=== PATIENT | female | born 1975 | race Caucasian/White ===

== ENCOUNTER → 2023-12-20 14:45 | Outpatient (BNV) | payer MEDICARE, MEDICAID, SELFPAY | PROVIDERS: PCP Internal Medicine; Visit Provider Radiology Diagnostic Radiology | DX: Z12.31 Encounter for screening mammogram for malignant neoplasm of breast (principal) | CPT/HCPCS: 77063; 77067 ==

== ENCOUNTER 2023-12-20 14:54 | Outpatient (REF) | payer MEDICARE, MEDICAID, SELFPAY ==
--- NOTE | ~2023-12-20 | MM_ITS ---
EXAMINATION: MM SCREENING DIGITAL BREAST TOMOSYNTHESIS, BILATERAL WITH BREAST IMPLANTS CLINICAL INFORMATION: Screening. Asymptomatic. COMPARISON: Mammography: This is a baseline mammogram TECHNIQUE: Digital mammography is performed in craniocaudal and mediolateral oblique views along with computer-aided detection (CAD). Digital breast tomosynthesis is performed in implant-displaced craniocaudal and implant-displaced mediolateral oblique views along with computer-aided detection (CAD). Synthesized 2D images are generated from the tomosynthesis. FINDINGS: There are scattered areas of fibroglandular density (ACR BI-RADS breast composition Category b). There are bilateral, retropectoral, mammographically intact saline breast implants. There are no significant masses, abnormal calcifications, or other abnormalities. MM/MM tomosynthesis screen imp BI IMPRESSION: There are no significant changes from prior study. ASSESSMENT: BI-RADS BI-RADS 1 - Negative RECOMMENDATION: Routine annual mammography screening. 1 year F/U This patient's information was entered into a reminder system with a target due date for their next mammogram.
== END 2023-12-20 14:55 | disposition home or self-care (01) ==
LOC: HO.MAMMO 14:54
PROVIDERS: PCP Internal Medicine; Visit Provider Internal Medicine
DX: Z12.31 Encounter for screening mammogram for malignant neoplasm of breast (principal)
CPT/HCPCS: 77063; 77067

== ENCOUNTER 2024-01-10 15:01 | Outpatient (REF) | payer MEDICARE, MEDICAID, SELFPAY ==
[2024-01-11 04:05] LABS: Syphilis Screen Nonreactive (Nonreactive)
[2024-01-11 04:34] LABS: HBS Num1 4.06 mIU/mL (0-7.99); HBc Num1 0.09 S/CO (0.00-0.79); HBsAGNum1 0.27 S/CO (0.00-0.99); HIV AB/AG Nonreactive (Nonreactive); HIV Num 1 0.05 S/CO (0.00-0.99); Hepatitis B Core Antibody Nonreactive (Nonreactive); Hepatitis B Surface Antigen Negative (Negative); ~HepC Num1 0.12 S/CO (0.00-0.79); ~Hepatitis B Surface Antibody NONREACTIVE (Nonreactive); ~Hepatitis C Antibody Nonreactive (Nonreactive)
[2024-01-19 01:58] LABS: C. trachomatis RNA TMA NOT DETECTED (NOT DETECTED); N. gonorrhoeae RNA TMA NOT DETECTED (NOT DETECTED)
[2024-01-19 02:09] LABS: Trichomonas (NAAT) NOT DETECTED (NOT DETECTED)
[2024-01-19 03:37] LABS: HPV mRNA E6/E7 rflx Not Detected (Not Detected)
== END 2024-01-10 15:02 | disposition home or self-care (01) ==
LOC: HO.CHCLDS 15:01
PROVIDERS: Visit Provider Advanced Practice Midwife
DX: Z11.3 Encounter for screening for infections with a predominantly sexual mode of transmission (principal); Z12.4 Encounter for screening for malignant neoplasm of cervix; Z11.59 Encounter for screening for other viral diseases
CPT/HCPCS: 36415; 86704; 86706; 86780; 86803; 87340; 87389; 87491; 87591; 87624; 87661; 88142

== ENCOUNTER 2024-01-30 11:02 | Outpatient (REF) | payer MEDICARE, MEDICAID, SELFPAY ==
[2024-01-30 14:32] LABS: MANUAL DIFF FLAG NO
[2024-01-30 14:39] LABS: Basophils Absolute Auto 0.1 X10*3/uL (0.0-0.2); Basophils Percent Auto 0.8 % (0-2); Eosinophils Absolute Auto 0.1 X10*3/uL (0.0-0.4); Eosinophils Percent Auto 1.7 % (0-4); Hematocrit 34.4 % (37.0-47.0); Hemoglobin 10.8 g/dl (12.0-16.0); Imm Gran Abs Auto 0.02 X10*3/uL (0.00-0.03); Imm Gran Pct Auto 0.2 % (0.0-0.4); Lymphocytes Absolute Auto 2.4 X10*3/uL (1.2-4.9); Lymphocytes Percent Auto 27.9 % (20-40); Mean Corpuscular HGB Conc 31.4 g/dl (31.0-35.0); Mean Corpuscular Hemoglobin 25.1 pg (27.0-33.0); Monocytes Absolute Auto 0.7 X10*3/uL (0.1-1.2); Monocytes Percent Auto 7.8 % (2-11); Neutrophils Absolute Auto 5.2 x10*3/uL (2.0-8.3); Neutrophils Percent Auto 61.6 % (45-73); Platelet Count 400 X10*3/uL (160-400); White Blood Count 8.4 X10*3/uL (4.8-10.8)
[2024-01-30 14:48] LABS: Estimated Average Glucose 114 mg/dL; Hemoglobin A1c % 5.6 % (<6.0)
[2024-01-30 14:57] LABS: Prothrombin Time 11.8 SEC (11.1-13.3)
[2024-01-30 14:59] LABS: Alanine Aminotransferase 14 U/L (0-31); Albumin Level 4.5 g/dL (3.5-5.0); Alkaline Phosphatase 63 U/L (39-117); Anion Gap 13 (12-20); Aspartate Amino Transferase 19 U/L (5-31); Bilirubin Total 0.6 mg/dL (0.0-1.0); Blood Urea Nitrogen 11 mg/dL (9-16); Calcium 9.5 mg/dL (8.4-10.2); Carbon Dioxide 24 mmol/L (22-29); Chloride 105 mmol/L (96-108); Cholesterol 203 mg/dL (<200); Estimated Glomerular Filt Rate > 60; Glucose Random 101 mg/dL (60-115); HDL Cholesterol 54 mg/dL (>40); LDL Cholesterol Calculated 135 mg/dL (<100); Potassium 3.7 mmol/L (3.3-5.1); Sodium 138 mmol/L (135-145); Total Protein 8.1 g/dL (6.5-8.0); Triglycerides 71 mg/dL (<150)
[2024-01-30 15:00] LABS: Partial Thromboplastin Time 29.5 SEC (26.0-36.8)
[2024-01-30 15:10] LABS: TSH reflex Free T4 0.98 uIU/mL (0.32-4.0); Vitamin D 25-OH Total 12.4 ng/mL (>30)
== END 2024-01-30 11:03 | disposition home or self-care (01) ==
LOC: HO.CHCLDS 11:02
PROVIDERS: Visit Provider Internal Medicine
DX: Z00.00 Encounter for general adult medical examination without abnormal findings (principal); E66.3 Overweight; E55.9 Vitamin D deficiency, unspecified; F41.9 Anxiety disorder, unspecified; Z83.3 Family history of diabetes mellitus
CPT/HCPCS: 36415; 80053; 80061; 82306; 83036; 84443; 85025; 85610; 85730

== ENCOUNTER 2024-02-24 12:18 | Outpatient (REF) | payer MEDICARE, MEDICAID, SELFPAY ==
--- NOTE | ~2024-02-24 | XR_ITS ---
EXAMINATION: XR chest 2V CLINICAL INFORMATION: Reason for Exam 48 yo F with intermittent episodes of STEELE, needs preop CXR, send to [facility] [place] COMPARISON: None TECHNIQUE: 2 views of the chest FINDINGS: Clear lungs. No pneumothorax or pleural effusion. Normal cardiomediastinal silhouette. XR/XR chest 2V Impression: * Clear lungs.
== END 2024-02-24 12:19 | disposition home or self-care (01) ==
LOC: HO.XRAY 12:18
PROVIDERS: Absent Provider Internal Medicine; PCP Internal Medicine; Visit Provider Family Medicine
DX: Z01.810 Encounter for preprocedural cardiovascular examination (principal)
CPT/HCPCS: 71046

== ENCOUNTER 2024-03-07 12:43 | Outpatient (REF) | payer MEDICARE, MEDICAID, SELFPAY ==
[2024-03-07 14:12] LABS: MANUAL DIFF FLAG NO
[2024-03-07 14:19] LABS: Basophils Absolute Auto 0.1 X10*3/uL (0.0-0.2); Basophils Percent Auto 0.6 % (0-2); Eosinophils Absolute Auto 0.2 X10*3/uL (0.0-0.4); Eosinophils Percent Auto 2.4 % (0-4); Hemoglobin 10.8 g/dl (12.0-16.0); Imm Gran Abs Auto 0.03 X10*3/uL (0.00-0.03); Imm Gran Pct Auto 0.3 % (0.0-0.4); Lymphocytes Absolute Auto 3.2 X10*3/uL (1.2-4.9); Lymphocytes Percent Auto 33.5 % (20-40); Mean Corpuscular HGB Conc 30.9 g/dl (31.0-35.0); Mean Corpuscular Hemoglobin 24.4 pg (27.0-33.0); Mean Corpuscular Volume 79.2 fL (80.0-98.0); Mean Platelet Volume 11.4 fL (9.4-12.3); Monocytes Absolute Auto 0.6 X10*3/uL (0.1-1.2); Monocytes Percent Auto 6.2 % (2-11); Neutrophils Absolute Auto 5.4 x10*3/uL (2.0-8.3); Platelet Count 455 X10*3/uL (160-400); Red Blood Count 4.42 X10*6/uL (4.20-5.50); Red Cell Distribution Width 15.7 % (11.0-16.0); White Blood Count 9.5 X10*3/uL (4.8-10.8)
== END 2024-03-07 12:44 | disposition home or self-care (01) ==
LOC: HO.CHCLDS 12:43
PROVIDERS: Visit Provider Family Medicine
DX: D64.9 Anemia, unspecified (principal)
CPT/HCPCS: 36415; 85025

== ENCOUNTER → 2024-03-09 09:21 | Outpatient (REF) | payer MEDICARE, MEDICAID, SELFPAY ==
--- NOTE | 2024-03-09 09:25 | CA_ITS ---
Acquisition Time: 2024-03-09 09:24:51 Total Exercise Time: 00:06:41 Test Indications: PREOP, SOB Medications: SEE H Protocol: CHRIS Max HR: 166 BPM 97% of Pred: 171 BPM Max BP: 146/064 mmHG Max Work Load: 8.0 METS Exercise stress test exercise 6 min 41 sec of Chris protocol achieving 95% MPHR and 8 METS, with mild to moderate SOB, no chest disocmfort, without arrhythmias, with normotensive response to exercise. without EKG chnages. Breathing returned to baseline with rest. Test reviewed with Dr. Kearns Referred By: Fern Ambrosio Overread By: Radha Regalado
== END ==
LOC: HO.CARD 09:21
PROVIDERS: PCP Internal Medicine; Visit Provider Family Medicine
DX: Z01.810 Encounter for preprocedural cardiovascular examination (principal)
CPT/HCPCS: 93017

== ENCOUNTER → 2024-03-09 09:25 | Outpatient (BNV) | payer MEDICARE, MEDICAID, SELFPAY | PROVIDERS: PCP Internal Medicine; Visit Provider Nurse Practitioner | DX: R06.02 Shortness of breath (principal) | CPT/HCPCS: 93016; 93018 ==

== ENCOUNTER 2025-03-18 12:43 | Outpatient (REF) | payer MEDICARE, MEDICAID, SELFPAY ==
--- OUTSIDE RECORDS SUMMARY | 2025-03-18 13:15 | XMS_ITS | Clinical Summary ---
Author Organization [facility] Address [id number] [place] [id number] Care Team Providers Care Assembler Dry Cell And Battery Name Role Phone Unavailable Primary Care Provider Unavailabl e Social History Tobacco Use Types Packs/Day Years Used Date Smoking Tobacco: Never Assessed Comments Unknown Sex and Gender Information Value Date Recorded Sex Assigned at Not on file Legal Sex Female 4:27 PM EST Gender Identity Not on file Sexual Orientation Not on file Plan of Treatment Health Maintenance Due Date Last Done Comments Breast Cancer Screening 1974 DTaP,Tdap,and Td Vaccines (1 - Tdap) 1993 Hepatitis B Vaccines (1 of 3 - 19+ 3-dose series) 1993 Cervical Cancer Screening: P ap Smear 1995 Colorectal Cancer Screening: Colonoscopy 08/11/2022 Depression Screening 08/11/2022 HIV Screening 08/11/2022 Hepatitis C Screening 08/11/2022 Social Influencers of Health Screening 08/11/2022 COVID-19 Vaccine (1 - 2023-2 5 season) 2024 Pneumococcal Vaccine: 50+ Ye ars (1 of 1 - PCV) 2024 Zoster Vaccines (1 of 2) 2024 Influenza Vaccine (#1) 2025 HIB Vaccines Aged Out No longer eligi ble based on patient's age to complete this topic HPV Vaccines Aged Out No longer eligi ble based on patient's age to complete this topic Hepatitis A Vaccines Aged Out No long er eligible based on patient's age to complete this topic IPV Vaccines Aged Out No longer eligi ble based on patient's age to complete this topic MMR Vaccines Aged Out No longer eligi ble based on patient's age to complete this topic Meningococcal ACWY Vaccine Aged Out N o longer eligible based on patient's age to complete this topic Meningococcal B Vaccine Aged Out No l onger eligible based on patient's age to complete this topic Pneumococcal Vaccine: Pediat rics (0 to 5 Years) and At-Risk Patients (6 to 49 Years) Aged Out No longer eligible b ased on patient's age to complete this topic RSV Immunization Patients Un yinka 20 months Aged Out No longer eligible b ased on patient's age to complete this topic Varicella Vaccines Aged Out No longer eligible based on patient's age to complete this topic
--- OUTSIDE RECORDS SUMMARY | 2025-03-18 13:15 | XMS_ITS | Encounter Summary ---
Author Organization [employer] Address [address], [place] [address] Care Team Providers Care Traffic Analyst Name Role Phone Marcelo Tao MD Primary Care Prov ider Reason for Visit * Reason Onset Date Comments Nurse Triage 03/18/2025 Encounter Details Date Type Department Care Team (Late st Contact Info) Description 03/18/2025 Telephone [facility] MEDICINE [address] [place] [address] Marcelo Tao MD [address] [place] [address] Nurse Triage Social History Tobacco Use Types Packs/Day Years Used Date Smoking Tobacco: Never Smokeless Tobacco: Never Alcohol Use Standard Drinks/Week Comments Never 0 (1 standard drink = 0.6 oz pur e alcohol) Depression Answer Date Recorded Patient Health Questionnaire-9 Score 7 11/29/2023 Patient Health Questionnaire-9 Score 7 11/29/2023 Last PHQ-9: Questionnaire Data Not on file 0 11/29/2023 Housing Stability Answer Date Recorded What is your housing situation today? I have ruperto cleopatra 11/29/[address] you li ve. Do you have problems with any of the following? No or not working smoke detectors 11/29/2023 Food Insecurity Answer Date Recorded Within the past 12 months, y ou worried that your food would run out before you got money to buy more: Never True 11/29/2023 Within the past 12 months,th e food you bought just didn't last and you didn't have enough money to get more: Never True Transportation Answer Date Recorded In the past 12 months, has l ack of transportation kept you from medical appts, meetings, work or from getting things needed for daily living? No 11/29/2023 Utilities Answer Date Recorded In the past 12 months, has t he electric, gas, oil or water company threatened to shut off services in your home? No 11/29/2023 Depression Answer Date Recorded Patient Health Questionnaire-2 Score 0 11/29/2023 Comments No Sex and Gender Information Value Date Recorded Sex Assigned at Female 07/27/2023 10:12 AM EST Legal Sex Female 10:11 AM EST Gender Identity Female 07/27/2023 10:12 AM EST Sexual Orientation Don't know 11/29/2023 1: 25 PM EDT documented as of this encounter Miscellaneous Notes * Telephone Encounter - Fabiana Pena RN - 03/18/2025 1:07 PM EDT Pt walked in requesting appointment with PCP, stated that she was instructed to come to [facility] office for an appt by triage. Author advised pt was advised to have labs completed. Pt stated that she has had a pressure feeling on her chest over past 6 months that has been persistent. Denies shortness ofbreath. No accessory muscles used, skin warm with normal color for ethnicity. No s/sx of resp distre ss. SOS appt available for tomorrow 03/19. Pt verbalized agreement to appt and understanding of plan.Pt had labs completed at [facility] today. * Telephone Encounter - Lilibeth SpringerANKITA gifford - 03/18/2025 11:28 AM EDT Patient calling with concerns of severe fatigue and weakness. Patient reports she is taking Iron three times weekly and it is causing constipation. Patient started to take a stool softener but stopped as she was having loose stools. Encouraged to take to prevent constipation. Patient followed with Psych provider now only taken Clonazepam and no longer taking injections. Patient is concerned with anemia and that she wants to see a lung specialist and have a sleep study. Patient reports severe snoring and is unable to sleep in an upright position. Continues to have some shortness of breath worse with exertion. No acute shortness of breath today per Patient. Labs ordered last year include CBC,Iron , Vit B12. Orders appear valid until 04/26/2025. Patient made aware and will go today or tomorrow to have labs done. No PCP or Team appts available at time of call. Patient made aware and Team tasked to follow with patient appt. After labs completed. Protocol Used: Weakness (Generalized) and Fatigue (Adult) Protocol-Based Disposition: See in Office or Video Visit Today Video visit offer not recorded Positive Triage Questions: * Moderate weakness (e.g., interferes with work, school, normal activities) and persists > 3 days * Patient wants to be seen * All higher-acuity triage questions were negative * Telephone Encounter - Lucy Caceres - 03/18/2025 10:50 AM EDT Symptoms: Weakness, Lethargic (Tired) Outcome: Transfer to a nurse or provider NOW! Reason: Can't stand (unless normally can't stand) The caller accepted this outcome. Contact pt at [phone] Need seismic interpreter documented in this encounter Plan of Treatment Upcoming Encounters Date Type Department Care Team ([facility] st Contact Info) Description 03/19/2025 3:45 PM EDT Office Visit [facility] [address] [place] [address] Eliane Frost, MEDICAL POLICY SPECIALIST [address] [place] [address] 04/17/2025 3:00 PM EDT Office Visit [facility] [address] [place] [address] Marcelo Tao MD [address] [place] [address] documented as of this encounter Visit Diagnoses Not on filedocumented in this encounter Additional Health Concerns Assessment Noted Time PHQ-9 Depression Total Score: 7 11/29/19 24 2:00 PM EDT documented as of this encounter Care Teams Traffic Analyst Relationship Specialty Start Date End Date Marcelo Tao MD [address] [place] [id number] PCP - General Internal Medicine 01/03/24 documented as of this encounter
[2025-03-18 14:35] LABS: MANUAL DIFF FLAG NO
[2025-03-18 14:48] LABS: Hematocrit 35.7 % (37.0-47.0); Hemoglobin 11.4 g/dl (12.0-16.0); Imm Gran Abs Auto 0.02 X10*3/uL (0.00-0.03); Imm Gran Pct Auto 0.3 % (0.0-0.4); Lymphocytes Absolute Auto 1.9 X10*3/uL (1.2-4.9); Mean Corpuscular HGB Conc 31.9 g/dl (31.0-35.0); Mean Corpuscular Hemoglobin 26.2 pg (27.0-33.0); Mean Corpuscular Volume 82.1 fL (80.0-98.0); NRBC Abs Auto 0.000 X10*3/uL (0.0-0.012); NRBC Pct Auto 0.0 /100WBC (0.0-0.2); Platelet Count 324 X10*3/uL (160-400); Red Blood Count 4.35 X10*6/uL (4.20-5.50); White Blood Count 6.5 X10*3/uL (4.8-10.8)
[2025-03-18 15:09] LABS: Iron 50 mcg/dL (30-160); Percent Iron Saturation 16 % (15-50); Total Iron Binding Capacity 314 mcg/dL (228-428); Unsaturated Iron Binding 264 ug/dL
[2025-03-18 15:39] LABS: Folate 8.2 ng/mL (> or = 4.0); Vitamin B12 1583 pg/mL (200-900)
== END 2025-03-18 12:44 | disposition home or self-care (01) ==
LOC: HO.CHCLDS 12:43
PROVIDERS: Visit Provider Internal Medicine
DX: D50.0 Iron deficiency anemia secondary to blood loss (chronic) (principal)
CPT/HCPCS: 36415; 82607; 82746; 83540; 85025

== ENCOUNTER 2025-03-22 14:17 | Outpatient (REF) | payer MEDICARE, MEDICAID, SELFPAY ==
--- OUTSIDE RECORDS SUMMARY | 2025-03-22 14:24 | XMS_ITS | Clinical Summary ---
Author Organization [facility] Address [address] [place] [id number] Care Team Providers Care Retail Maintenance Technician Name Role Phone Unavailable Primary Care Provider [...]
== END 2025-03-22 14:18 | disposition home or self-care (01) ==
LOC: HO.CHCLDS 14:17
PROVIDERS: Visit Provider Nurse Practitioner Family
DX: R06.00 Dyspnea, unspecified (principal)
CPT/HCPCS: 36415; 84443

== ENCOUNTER → 2025-04-24 12:44 | Outpatient (REF) | payer MEDICARE, MEDICAID, SELFPAY ==
--- NOTE | 2025-04-24 12:47 | CA_ITS ---
Transthoracic Echocardiogram Patient (Last, First, Middle): Jeanine Shaver, Gender: Female Date of : 1975 Age: 49 Procedure Date: 04/24/2025 Procedure Type: Transthoracic Echocardiogram Location: OP Height: 147.32 cm Weight: 56.25 kg BSA: 1.49 m2 Heart Rate: bpm BP: 102 / 68 mmHg Health Officer: TO Referring MD: Eliane Frost MACHINE ADJUSTER HELPER Banquet Captain: Reese Kearns MD Symptoms: R06.00 [id number] Study Quality: Adequate ECG Rhythm: Sinus Conclusions: - 1. Normal LV ejection fraction 55-60% with impaired relaxation filling pattern 2. Normal cardiac valvular Dopplers 3. Normal RV systolic pressure 4. No gross pericardial effusion Findings Left Ventricle Normal left ventricular size, thickness, and systolic function. The visually estimated ejection fraction is between 55-60%. Spectral Doppler is indicative of an impaired relaxation filling pattern. E/E prime ratio is between 8 and 15 consistent with indeterminate filling pressures. Right Ventricle Normal right ventricular cavity size and systolic function. Atria Both atria are normal in size. There is no evidence of interatrial shunt. Aortic Valve Normal aortic valve structure and function. There is no aortic valve stenosis. There is no aortic valve regurgitation. Mitral Valve There is mild anterior and posterior mitral leaflet thickening. There is trace mitral valve regurgitation. There is no mitral valve stenosis. Pulmonic Valve The pulmonic valve was not well visualized. Tricuspid Valve Likely normal tricuspid valve structure and function. There is trace tricuspid valve regurgitation. The right ventricular systolic pressure is normal. The right ventricular systolic pressure is 15 mmHg. Normal right atrial pressure. There is no evidence of pulmonary hypertension. Great Vessels All visible segments of the aorta are normal in size. The pulmonary artery was not well visualized. There is no dilatation of the ascending aorta measuring 2.60 cm. Venous The inferior vena cava is normal in size and collapses greater than 50% with inspiration. Pericardium/Pleural There is no evidence of pericardial effusion. Prior Study Comparison No prior study in the last 5 years for comparison Measurements 2D Linear Measurements IVSd: 0.66 0.6-0.9/0.6-1.0 cm LVIDd: 4.17 3.9-5.3/4.2-5.9 cm LVIDd Index: 2.80 2.4-3.2/2.2-3.1 cm/m2 LVIDs: 2.94 2.0-3.6 cm LVPWd: 0.58 0.7-1.1 cm LA Diam: 3.00 2.7-3.8/3.0-4.0 cm LAIDs Index: 2.01 1.5-2.3 cm/m2 LV Mass: 89.54 67-162/88-224 g LV Mass Index: 60.09 43-95/49-115 g/m2 LVOT Diam: 1.90 3.0+(-)1.3 cm 2D Systolic Function EF 4C: 58.60 >55% EF 2C: 61.20 >55% EF BiP: 59.20 >55% Mitral Valve MV Pk E: 0.81 MV PK A: 0.90 MV Decel Time: 213.00 E/A: 0.90 E'Lateral: 6.53 E'Medial: 5.77 E/E' Med: 14.10 E/E' Lat: 12.50 PHT: 62.00 MVA PHT: 3.55 Decel Brewster: 3.83 Aortic Valve AoV Pk Minh: 1.61 AoV Mn Minh: 1.01 AoV VTI: 0.30 AoV Pk Grad: 10.00 Aov Mn Grad: 5.00 PETE Cont.VTI: 2.03 LVOT LVOT Pk Minh: 1.06 LVOT Mn Minh: 0.73 LVOT VTI: 0.22 LVOT Pk Grad: 4.00 LVOT Mn Grad: 2.00 LVOT Diam: 1.90 LVOT Area: 2.84 Diastolic Function MV Pk E: 0.81 MV Pk A: 0.90 E/A: 0.90 E'Medial: 5.77 E/E' Med: 14.10 E' Laterial: 6.53 E/E' Lat: 12.50 Right Ventricle TAPSE (mm): 21.10 TVS' Minh: 11.00 Tricuspid Valve TR Pk Minh: 1.75 TR Pk Grad: 12.00 RA Press: 3.00 RVSP: 15.00 Great Vessels Aorta Sinus of Valsalva: 2.71 2.0-3.5 cm Ao Asc: 2.60 2.1-3.4 cm Updated in Other Vendor System with Status of Final Reese Kearns MD electronically signed on 04/24/2025 2:44:39 PM with status of Final
--- OUTSIDE RECORDS SUMMARY | 2025-04-24 13:15 | XMS_ITS | Clinical Summary ---
Author Organization [facility] Address [address] [place] [phone] Care Team Providers Care Financial Aid Administrator Name Role Phone Unavailable Primary Care Provider [...] Smear 1995 Colorectal Cancer Screening: Colonoscopy 08/11/2022 HIV Screening 08/11/2022 Hepatitis C Screening 08/11/2022 Social Influencers of Health Screening 08/11/2022 COVID-19 Vaccine (1 - 2023-2 5 season) 2024 Pneumococcal Vaccine: 50+ Ye ars (1 of 1 - PCV) 2024 Zoster Vaccines (1 of 2) 2024 Depression Screening 09/12/2024 Influenza Vaccine (#1) 2025 HIB Vaccines Aged [...]
--- OUTSIDE RECORDS SUMMARY | 2025-04-24 13:15 | XMS_ITS | Clinical Summary ---
Author Organization [employer] Address [address] [facility] [address] [place] [address] Care Team Providers Care Resource Engineer Name Role Phone Marcelo Tao MD Primary Care Prov ider Allergies No known active allergies Medications clonazePAM (KlonoPIN) 0.5 MG tablet 4 Active paliperidone (Invega) 3 MG 24 hr tablet 4 Active zolpidem (Ambien) 5 MG tablet 4 Active valACYclovir (Valtrex) 1 g tablet Take 1,000 mg by mouth 2 times daily. 4 Active ergocalciferol (Vitamin D2) 1.25 MG (43816 UT) capsule Take 1 capsule (1.25 mg) by mouth 1 (one) time per week. 8 capsule 4 Active cholecalcifero l (Vitamin D-3) 25 MCG (1000 UT) tablet Take 1 tablet (25 mcg) by mouth Once per day. 180 tablet 1 4 Active loratadine (Claritin) 10 MG tablet TAKE 1 TABLET BY MOUTH EVERY DAY IN THE MORNING 90 tablet 1 4 Active ibuprofen 600 MG tablet TAKE 1 TABLET BY MOUTH EVERY 6 HOURS NEEDED FOR MODERATE PAIN SCALE 4-6 90 tablet 1 5 Active oxymetazoline (Afrin Nasal [place]) 0.05 % nasal sprayIndicatio ns:Nasal congestion Administer 1 spray into each nostril 2 times daily for 3 days. Do not use for more than 3 days. 30 mL 5 Active ferrous gluconate (Fergon) 324 (38 Fe) MG tablet Take 1 tablet three times a week with about 4 ounces of orange juice. 12 tablet 11 5 Active Invega Sustenna 156 MG/ML suspension prefilled syringe 04/17/20 25 Discontinu ed(Therapy completed) Active Problems Problem Noted Date Diagnosed Date Iron deficiency anemia due to chronic blood loss 04/26/2024 Assessment & Plan (04/17/2025 4:41 PM EDT): Tsat still mildly low 16%, encouraged to continue oral iron replacement to be taken every other day, follow up in 3 months Assessment & Plan (04/26/2024 3:04 PM EDT): Patient has not started taking oral iron replacement, told to start therapy, will follow up in 2 months Preop cardiovascular exam 02/24/2024 Assessment & Plan (02/24/2024 10:52 AM EDT): Patient with complaints of STEELE & palpitations since more then 3 years ago. Patient also with mild anemia on exam done by PCP. At this point sent urgent referral to cardiology to r/o cardiac risk before proceeding with procedure. Did send iron supplementation and recommended repeat in 1 month. For now will need to hold recommendation to proceed until the above is done. Bilateral groin pain 01/19/2024 Assessment & Plan (01/19/2024 9:55 AM EDT): No sign of hernia, will refer to PT Vitamin D deficiency 01/19/2024 Assessment & Plan (04/26/2024 3:04 PM EDT): Has not started taking oral replacement, encouraged to restart therapy Chronic bilateral low back pain without sciatica 01/19/2024 Assessment & Plan (01/19/2024 10:00 AM EDT): Will order a lumbar xray Physical exam 01/19/2024 Shortness of breath 01/19/2024 Assessment & Plan (01/19/2024 10:05 AM EDT): Will order a spirometry test, was clear on auscultation on today exam Screening for colon cancer 11/29/2023 Assessment & Plan (11/29/2023 2:21 PM EDT): Will refer for screening colonoscopy Encounter for screening mamm ogram for malignant neoplasm of breast 11/29/2023 Screening for cervical cancer 11/29/2023 Assessment & Plan (11/29/2023 2:25 PM EDT): Patient prefers a female provider, will refer with Riarjunardinni Recurrent major depressive disorder, in full rem ission 11/29/2023 Assessment & Plan (11/29/2023 2:25 PM EDT): On clonazepam and invega followed by Dr roslyn Caballero for the past 3 years, no suicidal/homicidal ideas Anxiety 11/29/2023 Seasonal allergic rhinitis 11/29/2023 Assessment & Plan (11/29/2023 2:27 PM EDT): Will rx loratadine, she has used it before with good response Encounters Date Type Department Care Team Description 04/17/2025 3:00 PM EDT Office Visit [facility] [address] [place] [address] Marcelo Tao MD Screening for colon cancer (Primary Dx); Dietary counseling; Exercise counseling; Iron deficiency anemia due to chronic blood loss 04/17/2025 Travel 03/20/2025 Orders Only [facility] [address] [place], [place] [phone] ProviderRogelio MD 03/19/2025 3:45 PM EDT Office Visit [facility] [address] [place] [address] Eliane Frost FNP Dyspnea, unspecified type (Primary Dx) 03/19/2025 Travel 03/18/2025 Telephone [facility] [address] [place] [address] Marcelo Tao MD Nurse Triage 03/04/2025 2:40 PM EDT Office Visit [facility] [address] [place], [place] [phone] Kathia Cornejo MD Nasal congestion (Primary Dx); Dyspnea, unspecified type; Microcytic anemia 03/04/2025 Travel 03/04/2025 Telephone [facility] [address] [place] [address] Marcelo Tao MD Nurse Triage 03/01/2025 Telephone [facility] [address] [place] [phone] Marcelo Tao MD Nurse Triage 02/13/[address] [address] Marcelo Tao MD No Show 02/13/2025 Telephone [facility] [address] [place] [address] Marcelo Tao MD 02/10/2025 Refill [facility] [address] [place] [address] Marcelo Tao MD 02/08/2025 Travel from Last 3 Months Immunizations Immunization Administration Dates Next Due Hep B, adult 02/16/2024,01/19/2024 Influenza injectable quadriv alent IIV4 with preservative 08/26/2016 Influenza, IIV3, injectable 06/21/2008 Pfizer Covid-19 Vaccine 12+ 01/26/2021, Tdap 01/19/2024 Family History Medical History Relation Name Comments Hyperlipidemia Father Hypertension Father Heart disease Mother Hyperlipidemia Mother Relation Name Status Comments Father Mother Social History Tobacco Use Types Packs/Day Years Used Date Smoking Tobacco: Never Smokeless Tobacco: Never Tobacco Cessation:Counseling Given: Not Answered Alcohol Use Standard Drinks/Week Comments Never 0 (1 standard drink = 0.6 oz pur e alcohol) Depression Answer Date Recorded Patient Health Questionnaire-9 Score 7 04/17/2025 Patient Health Questionnaire-9 Score 7 04/17/2025 Last PHQ-9: Questionnaire Data Not on file 0 04/17/2025 Housing Stability Answer Date Recorded What is your housing situation today? I have ruperto whelan 04/17/[address] you li ve. Do you have problems with any of the following? None of the above 04/17/2025 Food Insecurity Answer Date Recorded Within the past 12 months, y ou worried that your food would run out before you got money to buy more: Never True 04/17/2025 Within the past 12 months,th e food you bought just didn't last and you didn't have enough money to get more: Never True 02/2025 Transportation Answer Date Recorded In the past 12 months, has l ack of transportation kept you from medical appts, meetings, work or from getting things needed for daily living? No 04/17/2025 Utilities Answer Date Recorded In the past 12 months, has t he electric, gas, oil or water company threatened to shut off services in your home? No 04/17/2025 Depression Answer Date Recorded Patient Health Questionnaire-2 Score 2 04/17/2025 Internet Access Answer Date Recorded Internet Access Q1 Yes 04/17/2025 Internet Access Q2 Not on file 04/17/2025 Comments No Sex and Gender Information Value Date Recorded Sex Assigned at Female 07/27/2023 10:12 AM EST Legal Sex Female 10:11 AM EST Gender Identity Female 07/27/2023 10:12 AM EST Sexual Orientation Don't know 11/29/2023 1: 25 PM EDT Last Filed Vital Signs Vital Sign Reading Time Taken Comments Blood Pressure 126/89 04/17/2025 3:03 PM EDT Pulse 73 04/17/2025 3:03 PM EDT Temperature 36.7 C (98.1 F) 04/17/2025 3:03 PM EDT Respiratory Rate 20 04/17/2025 3:03 PM EDT Oxygen Saturation 98% 03/19/2025 3:40 PM EDT Inhaled Oxygen Concentration - - Weight 56.5 kg (124 lb 9.6 oz) 04/17/2025 3:03 P M EDT Height 147.3 cm (4' 10 ) 04/17/2025 3:03 PM EDT Body Mass Index 26.04 04/17/2025 3:03 PM EDT Plan of Treatment Health Maintenance Due Date Last Done Comments CT Colonography 1975 Colonoscopy 1975 Colorectal Cancer Screening 1975 Dental Oral Exam 1975 Dental Prophylaxis 1975 Dental X-Ray: Full Mouth 1974 FIT DNA/Cologuard 1975 FIT 1975 FOBT 1975 Sigmoidoscopy 1975 Disability Screening 1975 Family Planning (PISQ) 1989 COVID-19 Vaccine (3 - 2023-2 5 season) 2024 01/26/2021, 01/05/2021 Pneumococcal Vaccine: 50+ Years (1 of 1 - PCV) 2024 Zoster Vaccines (1 of 2) 2024 Hepatitis B Vaccines (3 of 3 - 19+ 3-dose series) 07/21/2024 02/16/2024, 01/19/2024 Cervical Cancer Screening 01/09/2025 HPV/Cotest 01/09/2025 01/10/2024 Pap Smear 01/09/2025 01/10/2024, 01/10/2024 Dental X-Ray: Bitewings 02/24/2025 02/24/2024 Influenza Vaccine (#1) 2025 6, 06/21/2008 Mammogram 12/19/2025 12/20/2023 Tobacco Screening 03/04/2026 03/04/2025 Alcohol/Substance Use Screening 04/17/2026 04/17/2025 Depression Screening 04/17/2026 04/17/2025, 04/17/2025 SDOH Screening 04/17/2026 04/17/2025 DTaP/Tdap/Td Vaccines (2 - T d or Tdap) 01/18/2034 01/19/2024 RSV Patients and Patients Aged 60 years or older (1 - 1-dose 75+ series) 2049 HIV Screening Completed 01/10/2024 Hepatitis C Screening Completed 01/10/2024 HIB Vaccines Aged Out No longer eligi [...] patient's age to complete this topic Meningococcal Vaccine Aged Out No nicholas ash eligible based on patient's age to complete this topic RSV under 20 months Aged Out No longe r eligible based on patient's age to complete this topic Rotavirus Vaccines Aged Out No longer eligible based on patient's age to complete this topic Procedures Procedure Name Priority Date/Time Associated Diagnosis Comments TSH W/REFLEX TO FT4 Routine 03/22/2025 2 :20 PM EDT Dyspnea, unspecified type ECG 12-LEAD Routine 03/19/2025 9:20 AM EDT VITAMIN B12/FOLATE, SERUM PANEL Routine 03/18/2025 12:45 PM EDT Iron deficiency anemia due to chronic blood loss IRON AND TOTAL IRON BINDING CAPACITY Routine 03/18/2025 12:45 PM EDT Iron deficiency anemia due to chronic blood loss CBC WITH AUTO DIFFERENTIAL Routine 03/18/2025 12:45 PM EDT Iron deficiency anemia due to chronic blood loss BITEWING - SINGLE RADIOGRAPHIC IMAGE Routine 02/24/2024 11:30 AM EDT HEPATITIS C AB W/REFL TO HCV RNA, QN, PCR Routine 01/10/2024 3:09 PM EDT Encntr screen for infections w sexl mode of transmiss HIV 1/2 ANTIGEN/ANTIBODY, FOURTH GENERATION W/RFL Routine 01/10/2024 3:09 PM EDT Encntr screen for infections w sexl mode of transmiss HPV MRNA E6/E7 REFLEX TO HPV 16, 18/45 Routine 01/10/2024 2:50 PM EDT IMAGE-GUIDED PAP W/AGE BASED SCR,W/CT/NG/TRICH Routine 01/10/2024 2:50 PM EDT Cervical cancer screening Encntr screen for infections w sexl mode of transmiss BI MAMMOGRAM SCREEN W RJ W IMPLANTS GARCIA Routine 12/20/2023 3:25 PM EDT from Last 3 Months or Most Recently Relevant to Health Maintenance Results * TSH W/Reflex to FT4 (03/22/2025 2:20 PM EDT) TSH reflex Free T4 0.52 0.32 - 4.0 uIU/mL [facility] Blood Venous blood specimen / Unknown 03/22/2025 2:20 PM EDT 03/22/2025 2:41 PM EDT Eliane Frost ASSOCIATE DIRECTOR OF BIOSTATISTICS LAB BLOOD ORDERABLES Final Resu lt Performing Organization Address City/[facility]/ZIP Co de Phone Number [facility] [address] [place] [phone] * ECG 12 lead (03/19/2025 9:20 AM EDT) Rogelio Muro MD ECG ORDERABLES Final Res ult * (ABNORMAL) Vitamin B12 (Cobalamin) and Folate Panel, Serum (03/18/2025 12:45 PM EDT) Vitamin B12 1,583(H) 200 - 900 pg/mL [facility] Comment:NORMAL 200-900 PG/ML INDETERMINATE 160-199 PG/ML DEFICIENT < 160 PG/ML Folate 8.2 > or = 4.0 ng/mL [facility] Comment:Reference Values:> o r = 4.0 ng/mL< 4.0 ng/mL suggests folate deficiency Methotrexate, aminopterin and folinic acid(leucovorin) are chemotherapeutic agents whose molecularstructures are similar to folate; therefore, the Architectfolate assay cannot be used for patients using these drugs. Blood Venous blood specimen / Unknown 03/18/2025 12:45 PM EDT 03/18/2025 2:29 PM EDT Marcelo Riddle MD LAB BLOOD ORDERABL ES Final Result Performing Organization Address [facility]/ZIP Co de Phone Number [facility] [address] [place] [phone] * (ABNORMAL) CBC auto differential (03/18/2025 12:45 PM EDT) Pathologist [facility] White Blood Count 6.5 4.8 - 10.8 X10*3/uL [facility] Red Blood Count 4.35 4.20 - 5.50 X10*6/uL [facility] Hemoglobin 11.4(L) 12.0 - 16.0 g/dl [facility] Hematocrit 35.7(L) 37.0 - 47.0 % [facility] Mean Corpuscular Volume 82.1 80.0 - 98.0 fL [facility] Mean Corpuscular Hemoglobin 26.2(L) 27.0 - 33.0 pg [facility] Mean Corpuscular HGB Conc 31.9 31.0 - 35.0 g/dl [facility] Red Cell Distribution Width 19.9(H) 11.0 - 16.0 % [facility] Platelet Count 324 160 - 400 X10*3/uL [facility] Mean Platelet Volume 11.2 9.4 - 12.3 fL [facility] Neutrophils Percent Auto 63.3 45 - 73 % [facility] Imm Gran Pct Auto 0.3 0.0 - 0.4 % [facility] Lymphocytes Percent Auto 28.3 20 - 40 % [facility] Monocytes Percent Auto 6.4 2 - 11 % [facility] Eosinophils Percent Auto 1.5 0 - 4 % [facility] Basophils Percent Auto 0.2 0 - 2 % [facility] NRBC Pct Auto 0.0 0.0 - 0.2 /100WBC [facility] Neutrophils Absolute Auto 4.1 2.0 - 8.3 x10*3/uL [facility] Imm Gran Abs Auto 0.02 0.00 - 0.03 X10*3/uL [facility] Lymphocytes Absolute Auto 1.9 1.2 - 4.9 X10*3/uL [facility] Monocytes Absolute Auto 0.4 0.1 - 1.2 X10*3/uL [facility] Eosinophils Absolute Auto 0.1 0.0 - 0.4 X10*3/uL [facility] Basophils Absolute Auto 0.0 0.0 - 0.2 X10*3/uL [facility] NRBC Abs Auto 0.000 0.0 - 0.012 X10*3/uL [facility] Blood Venous blood specimen / Unknown 03/18/2025 12:45 PM EDT 03/18/2025 2:29 PM EDT us Marcelo Riddle MD LAB BLOOD ORDERABL ES Final Result Performing Organization Address [facility] Co de Phone Number [facility] [address] [place] [phone] * Iron And Total Iron Binding Capacity (03/18/2025 12:45 PM EDT) Iron 50 30 - 160 mcg/dL [facility] Total Iron Binding Capacity 314 228 - 428 mcg/dL [facility] Percent Iron Saturation 16 15 - 50 % [facility] Unsaturated Iron Binding 264 ug/dL [facility] Blood Venous blood specimen / Unknown 03/18/2025 12:45 PM EDT 03/18/2025 2:29 PM EDT us Marcelo Riddle MD LAB BLOOD ORDERABL ES Final Result Performing Organization Address [facility] Number [facility] [address] [place] [phone] * Hepatitis C Antibody with Reflex to HCV, RNA, Quantitative, Real-Time PCR (01/10/2024 3:09 PM EDT) Pathologist [facility] Hepatitis C Antibody Nonreactive Nonreactive [facility] Comment:Antibodies to HCV no t detected; does not exclude early acuteHCV infection. Blood Venous blood specimen / Unknown 01/10/2024 3:09 PM EDT 01/10/2024 5:41 PM EDT us Jeanine RASMUSSEN LAB BLOOD ORDERABLES Ashley l Result Performing Organization Address [facility] Co de Phone Number [facility] [address] [place] [phone] * HIV-1/2 Antigen and Antibodies, Fourth Generation, with Reflexes (01/10/2024 3:09 PM EDT) Pathologist [facility] HIV AB/AG Nonreactive Nonreactive [facility] Comment:HIV-1 p24 Ag and/or HIV-1/HIV-2 Ab not detected.A test result that is nonreactive does not exclude thepossibility of exposure to or infection with HIV-1 and/orHIV-2. Nonreactive results in this assay for individualswith prior exposure to HIV-1 and/or HIV-2 may be due toantigen and antibody levels that are below the limit ofdetection of this assay.The [employer] HIV Ag/Ab Combo assay result andsupplemental assay results should be interpreted inconjunction with the patient's clinical presentation,history and other laboratory results. If the results areinconsistent with clinical evidence, additional testing issuggested to confirm the result. Blood Venous blood specimen / Unknown 01/10/2024 3:09 PM EDT 01/10/2024 5:41 PM EDT Jeanine Turcios [facility] LAB BLOOD ORDERABLES Ashley madrid Result [facility] [address] [place] [phone] * Pap with NG,CT,Trich (01/10/2024 2:50 PM EDT) Pathologist [facility] Trichomonas (NAAT) NOT DETECTED NOT DETECTED [facility] Comment:The analytical perfo rmance characteristics of thisassay have been determined by [facility]. Themodifications have not been cleared or approved bythe FDA. This assay has been validated pursuant to theCLIA regulations and is used for clinical purposes.For additional information, please refer tohttp://education.Curriculet/faq/Trichomonastma(This link is being provided for information/educational purposes only.)THIS TEST WAS PERFORMED AT:[facility] [address] [phone] CHAMPAGNE MD CTNG Ref Lab NOT DETECTED NOT DETECTED [facility] NG Ref Lab NOT DETECTED NOT DETECTED [facility] Pap Vial Vaginal structure / Unknown 01/10/2024 2:50 PM EDT 01/11/2024 12:00 PM EDT Jeanine Turcios [facility] LAB CYTOLOGY ORDERABLES F inal Result Performing Organization Address [facility] Co de Phone Number [facility] [address] [place] [phone] * HPV mRNA E6/E7 w/Reflex to HPV Genotypes 16, 18/45 (01/10/2024 2:50 PM EDT) HPV nRNA E6/E7 Not Detected Not Detected [facility] Comment:Methodology: Transcr iption-Mediated AmplificationThis assay detects E6/E7 viral messenger RNA (mRNA) from 14high-risk HPV types (16,18,31,33,35,39,45,51,52,56,58,59,66,68).Cervical sources are required for HPV testing.If a vaginal source from a patient who has had atotal hysterectomy with removal of cervix wassubmitted, please contact the testing laboratoryfor alternative testing options.For additional information, please refer tohttp://education.Curriculet/faq/KOE172h5(This link if provided for information/educational purposes only.)THIS TEST WAS PERFORMED AT:[facility] [address] [phone] CHAMPAGNE MD HPV mRNA E6/E7 [facility] HPV 16 RNA [facility] HPV 18/45 RNA [facility] 01/10/2024 2:50 PM EDT 01/11/2024 12:00 PM EDT Jeanine Turcios [facility] CYTOLOGY ORDERABLES F inal Result Performing Organization Address [facility]/ZIP Co de Phone Number [facility] [address] [place] [phone] * BI Mammogram Screen w/ Rj w/ Implants Garcia (12/20/2023 3:25 PM EDT) Anatomical Region Laterality Modality Mammography 12/20/2023 3:25 PM EDT Narrative 12/26/2023 5:55 AM EDT [facility] [address] [place] [address] Mammography Report Signed Patient: Jeanine Shaver MR#: [id number] : 1975 Acct:[id number] Age/Sex: 48 / F ADM Date: 12/20/23 Loc: HO.MAMMO Attending Dr: Marcelo Riddle MD Ordering Physician: Marcelo Tao MD Res ults: 1Negative Date of Service: 12/20/23 Follow Up: 1 Year From Orig ina Mammogram Procedure(s): MM tomosynthesis screen imp BI Accession Number(s): [id number] cc: Marcelo Tao MD EXAMINATION: MM SCREENING DIGITAL BREAST TOMOSYNTHESIS, BILATERAL WITH BREAST IMPLANTS CLINICAL INFORMATION: Screening. Asymptomatic. COMPARISON: Mammography: This is a baseline mammogram TECHNIQUE: Digital mammography is performed in craniocaudal and mediolateral oblique views along with computer-aided detection (CAD). Digital breast tomosynthesis is performed in implant-displaced craniocaudal and implant-displaced mediolateral oblique views along with computer-aided detection (CAD). Synthesized 2D images are generated from the tomosynthesis. FINDINGS: There are scattered areas of fibroglandular density (ACR BI-RADS breast composition Category b). There are bilateral, retropectoral, mammographically intact saline breast implants. There are no significant masses, abnormal calcifications, or other abnormalities. MM/MM tomosynthesis screen imp BI IMPRESSION: There are no significant changes from prior study. ASSESSMENT: BI-RADS BI-RADS 1 - Negative RECOMMENDATION: Routine annual mammography screening. 1 year F/U This patient's information was entered into a reminder system with a target due date for their next mammogram. Dictated By: Lisbet Oh MD Signed By: <Electronically signed by Lisbet Oh MD in OV> 12/26/23 0551 DD/ 1525 TD/TT: Anatomic Pathology Assistant: Procedure Note Donotakirainterpreter, Image - [facility]/27/2023 [facility] [address] [place], [place] [address] Mammography Report Signed Patient: Ronaldo Shaver#: [id number] : 1975Acct:[id number] Age/Sex: 48 / FADM Date: 12/20/23 Loc: HO.MAMMO Attending Dr: Marcelo Riddle MD Ordering Physician: Marcelo Tao ults: 1Negative Date of Service: 12/20/23Follow Up: 1 Year From Orig inal Mammogram Procedure(s): MM tomosynthesis screen imp BI Accession Number(s): [id number] cc: Marcelo Tao MD EXAMINATION: MM SCREENING DIGITAL BREAST TOMOSYNTHESIS, BILATERAL WITH BREAST IMPLANTS CLINICAL INFORMATION: Screening. Asymptomatic. COMPARISON: Mammography: This is a baseline mammogram TECHNIQUE: Digital mammography is performed in craniocaudal and mediolateral oblique views along with computer-aided detection (CAD). Digital breast tomosynthesis is performed in implant-displaced craniocaudal and implant-displaced mediolateral oblique views along with computer-aided detection (CAD). Synthesized 2D images are generated from the tomosynthesis. FINDINGS: There are scattered areas of fibroglandular density (ACR BI-RADS breast composition Category b). There are bilateral, retropectoral, mammographically intact saline breast implants. There are no significant masses, abnormal calcifications, or other abnormalities. MM/MM tomosynthesis screen imp BI IMPRESSION: There are no significant changes from prior study. ASSESSMENT: BI-RADS BI-RADS 1 - Negative RECOMMENDATION: Routine annual mammography screening. 1 year F/U This patient's information was entered into a reminder system with a target due date for their next mammogram. Dictated By: Lisbet Oh MD Signed By: <Electronically signed by Lisbet Oh MD in OV> 12/26/23 0551 DD/ 1525 TD/TT: Anatomic Pathology Assistant: Marcelo Riddle MD IMG BI PROCEDURES Final Result from Last 3 Months or Most Recently Relevant to Health Maintenance Insurance STANDARD [place] [phone] [facility] MEDICAID STAND ADULT Care Teams Resource Engineer Relationship Specialty Start Date End Date Marcelo Tao MD [address] [place] [phone] PCP - General Internal Medicine 01/03/24
== END ==
LOC: HO.CARD 12:44
PROVIDERS: PCP Internal Medicine; Visit Provider Nurse Practitioner Family
DX: R06.00 Dyspnea, unspecified (principal)
CPT/HCPCS: 93306

== ENCOUNTER → 2025-04-24 12:47 | Outpatient (BNV) | payer MEDICARE, MEDICAID, SELFPAY | PROVIDERS: PCP Internal Medicine; Visit Provider Internal Medicine Cardiovascular Disease | DX: I51.89 Other ill-defined heart diseases (principal) | CPT/HCPCS: 93306 ==